=== PATIENT | male | born 1950 | race Caucasian/White ===

== ENCOUNTER 2018-09-19 06:59 | Day surgery (SDC) | payer MEDICAID, MEDICARE ==
[2018-09-19] MEDS ORDERED: Pilocarpine 4% Ophth Soln 15 ML Bot EYERT SCH (07:00)
[2018-09-19] MEDS ORDERED: Cefuroxime 10 MG/ML SYRINGE EYERT SCH (07:00)
[2018-09-19] MEDS ORDERED: Lidocaine 1% PF 2 ML SDV INJECT SCH (07:00)
[2018-09-19] MEDS: Polymyxin B/Trimethoprim 10 ML Bottle EYERT SCH ×3 (07:11→08:49)
[2018-09-19] MEDS: Brimonidine 0.2% Ophth Soln 5 ML Bottle EYERT SCH ×3 (07:17→08:49)
--- NOTE | 2018-09-19 07:19 | PCM.PREANE ---
Preanesthetic Assessment - Anesthesia/Transfusion/Family Hx Anesthesia History: Prior Anesthesia Without Reaction Family History of Anesthesia Reaction: No Transfusion History: No Prior Transfusion(s) Intubation History: Unknown - Review of Systems General: No Symptoms Cardiovascular: No Symptoms Gastrointestinal: No Symptoms Neurological: No Symptoms Other: Reports: None - Physical Assessment NPO Status Date: 09/18/18 NPO Status Time: 18:00 Pulse: 65 O2 Sat by Pulse Oximetry: 94 Respiratory Rate: 16 Blood Pressure: 128/75 Temperature: 97.3 C ASA Class: 2 Mental Status: Alert & Oriented x3 Airway Class: Mallampati = 2 Dentition: Reports: Normal Dentition Thyro-Mental Finger Breadths: 3 Mouth Opening Finger Breadths: 3 ROM/Head Extension: Full Lungs: Clear to Auscultation, Normal Respiratory Effort Cardiovascular: Regular Rate, Regular Rhythm - Allergies Allergies/Adverse Reactions: Allergies Allergy/AdvReac Type Severity Reaction Status Date / Time Penicillins Allergy Cannot Verified 09/18/18 13:31 Remember - Acknowledgements Anesthesia Type Planned: MAC Pt an Appropriate Candidate for the Planned Anesthesia: Yes Alternatives and Risks of Anesthesia Discussed w Pt/Guardian: Yes Pt/Guardian Understands and Agrees with Anesthesia Plan: Yes PreAnesthesia Questionnaire HEENT History: Reports: Cataract Cardiovascular History: Reports: Hypertension Respiratory History: Reports: None Gastrointestinal History: Reports: None Endocrine/Metabolic History: Reports: None Oncologic (Cancer) History: Reports: None - Past Surgical History HEENT Surgical History: Reports: Cataract Surgery Neurological Surgical History: Reports: Other (See Below) (L4-5 pt states had disc shaved) Musculoskeletal Surgical History: Reports: Other (See Below) ((R) hand) - SUBSTANCE USE Smoking Status *Q: Former Smoker - HOME MEDS Home Medications: Home Meds Ascorbic Acid [Vitamin C] 1,000 mg PO DAILY 08/14/18 [History] Aspirin 81 mg PO DAILY 08/14/18 [History] Losartan/Hydrochlorothiazide [Losartan-HCTZ 100-12.5 MG] 1 tab PO DAILY [History] Multivitamin [Daily Multiple Vitamin] 1 tab PO DAILY 08/14/18 [History] amLODIPine Besylate [Amlodipine Besylate] 5 mg PO DAILY 08/14/18 [History] - CURRENT (IN HOUSE) MEDS Current Meds: Current Medications Brimonidine Tartrate (Alphagan 0.2% Oph Soln) 0 ml EYERT ASDIRECTED LALIT Stop: 09/19/18 18:00 Cefuroxime Sodium (Zinacef) 0 mg EYERT ASDIRECTED LALIT Stop: 09/19/18 18:00 Lidocaine HCl (Xylocaine-Mpf 1%) 0 ml INJECT ASDIRECTED LALIT Stop: 09/19/18 18:00 Phenylephrine HCl (Edgar-Synephrine 2.5% Ophth Soln) 0 ml EYERT ASDIRECTED LALIT Stop: 09/19/18 18:00 Pilocarpine HCl (Pilocar 4% Ophth Soln) 0 ml EYERT ASDIRECTED LALIT Stop: 09/19/18 18:00 Polymyxin/Trimethoprim Sulfate (Polytrim Ophth Soln) 0 ml EYERT ASDIRECTED LALIT Stop: 09/19/18 18:00 Last Admin: 09/19/18 07:11 Dose: 1 drop Tetracaine HCl (Tetracaine 0.5% Steri-Unit Cassi) 0 ml EYERT ASDIRECTED LALIT Stop: 09/19/18 18:00 Tropicamide (Mydriacyl 1% Ophth Soln) 0 ml EYERT ASDIRECTED LALIT Stop: 09/19/18 18:00
[2018-09-19] MEDS: Phenylephrine 2.5% Ophth Soln 2 ML Bot EYERT SCH ×5 (07:21→08:30)
[2018-09-19] MEDS: Tropicamide 1% Ophth Soln 15 ML Bottle EYERT SCH ×4 (07:25→08:01)
[2018-09-19] MEDS: Tetracaine HCl/PF 0.5% 4 ML Bottle EYERT SCH ×2 (08:14→08:39)
--- NOTE | 2018-09-19 08:51 | PCM48HPAN ---
Post Anesthesia Note - EVALUATION WITHIN 48HRS OF ANESTHETIC Vital Signs in Normal Range: Yes Patient Participated in Evaluation: Yes Respiratory Function Stable: Yes Airway Patent: Yes Cardiovascular Function Stable: Yes Hydration Status Stable: Yes Pain Control Satisfactory: Yes Nausea and Vomiting Control Satisfactory: Yes Mental Status Recovered: Yes
== END 2018-09-19 09:02 | disposition home or self-care (01) ==
LOC: JD.SDS 06:59
PROVIDERS: ATTEND Ophthalmology
DX: H25.811 Combined forms of age-related cataract, right eye (principal); I10 Essential (primary) hypertension; F41.9 Anxiety disorder, unspecified; Z88.0 Allergy status to penicillin; Z98.42 Cataract extraction status, left eye; Z96.1 Presence of intraocular lens; Z87.891 Personal history of nicotine dependence; Z91.09 Other allergy status, other than to drugs and biological substances; Z79.82 Long term (current) use of aspirin; Z79.899 Other long term (current) drug therapy
CPT/HCPCS: 66984; A9270; C1780; J0697; J2001

== ENCOUNTER 2019-11-22 16:41 | Emergency (ER) | payer MEDICAID, MEDICARE, OTHER ==
--- NOTE | 2019-11-22 18:07 | CR ---
Sacrum and coccyx: 3 views of the sacrum and coccyx were obtained. Comparison: No previous study. Sacroiliac joints appear normal. No fracture or other bony abnormality is seen. Mild degenerative change is noted within the visualized lower lumbar spine. Impression: 1. Mild degenerative change is noted within the visualized lower lumbar spine. 2. 3 view sacrum and coccyx study is otherwise unremarkable. Diagnostic code #2 Study was dictated in MDT
--- NOTE | 2019-11-22 18:07 | CR ---
Lumbar spine: AP, lateral and coned-down lateral view centered to the lumbosacral junction are obtained. Comparison: No prior lumbar spine imaging is available Mild diffuse disc space narrowing is seen throughout the spine most severe at L3-L4. Scattered anterior endplate osteophytes are seen. Vertebral body heights are maintained. Pedicles are intact. Visualized transverse and spinous processes are intact. Sacroiliac joints appear within normal limits. Impression: 1. Diffuse degenerative change as noted above. Diagnostic code #2 Study was dictated in MDT
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
== END 2019-11-22 18:29 | disposition home or self-care (01) ==
LOC: JD.ED 16:41
DX: S76.311A Strain of muscle, fascia and tendon of the posterior muscle group at thigh level, right thigh, initial encounter (principal); Z88.0 Allergy status to penicillin; F41.9 Anxiety disorder, unspecified; I10 Essential (primary) hypertension; Z79.899 Other long term (current) drug therapy; Z87.891 Personal history of nicotine dependence; X50.9XXA Other and unspecified overexertion or strenuous movements or postures, initial encounter
CPT/HCPCS: 72100; 72100-26; 72220; 72220-26; 99282; 99283-25